=== PATIENT | female | born 1995 | race Caucasian/White ===

== ENCOUNTER 2016-10-29 09:21 | Emergency (ER) | payer BC ==
[~2016-10-29] VITALS: Ht 167.6 cm; Wt 83.0 kg
[2016-10-29 09:36] VITALS: BP 129/87
[2016-10-29] MEDS ORDERED: MORPHINE SULFATE 2 MG/ML DISP.SYRIN. IV/SQ PRN (09:45)
--- NOTE | 2016-10-29 09:45 | PHYS DOC ---
Past Medical History Past Medical History: No Pertinent History Past Surgical History: No Surgical History Alcohol Use: None Drug Use: None Adult General Chief Complaint Chief Complaint: ABDOMINAL PAIN HPI HPI Patient is a 21 year old female who presents with right upper quadrant pain. She states it started Friday in the afternoon lasted for several hours and then resolved by itself. She states over the weekend lasted for a couple hours and resolved and then yesterday it was fairly consistent all day long. She states she's not had much of appetite is not been eating. She states describes pain as sharp stabbing pain in the right upper quadrant without any radiation. She denies any vaginal bleeding discharge or dysuria. She denies any past surgical history on her abdomen. She states her pain is 3 out of 10. Review of Systems Review of Systems Constitutional: Denies fever or chills [] Eyes: Denies change in visual acuity, redness, or eye pain [] HENT: Denies nasal congestion or sore throat [] Respiratory: Denies cough or shortness of breath [] Cardiovascular: No additional information not addressed in HPI [] GI: Denies vomiting, bloody stools or diarrhea, positive for abdominal pain, nausea,[] : Denies dysuria or hematuria [] Musculoskeletal: Denies back pain or joint pain [] Integument: Denies rash or skin lesions [] Neurologic: Denies headache, focal weakness or sensory changes [] Endocrine: Denies polyuria or polydipsia [] Current Medications Current Medications Current Medications Medications (Trade) Dose Ordered Sig/Wes Start Time Stop Time Status Last Admin Dose Admin Info (Do NOT chart on this entry -- for MONITORING) 1 each PRN DAILY PRN 10/29/16 10:30 10/31/16 10:29 Iohexol (Omnipaque 240 Mg/ml) 50 ml 1X ONCE 10/29/16 10:45 10/29/16 10:46 DC 10/29/16 11:36 50 ML Iohexol (Omnipaque 300 Mg/ml) 75 ml 1X ONCE 10/29/16 10:45 10/29/16 10:46 DC 10/29/16 11:36 75 ML Morphine Sulfate 2 mg PRN Q15MIN PRN 10/29/16 09:45 10/30/16 09:44 Ondansetron HCl (Zofran) 4 mg 1X ONCE 10/29/16 10:00 10/29/16 10:01 DC 10/29/16 10:11 4 MG Sodium Chloride 1,000 ml @ 1,000 mls/hr Q1H 10/29/16 10:00 10/29/16 10:59 DC 10/29/16 10:11 1,000 MLS/HR Allergies Allergies Allergies Coded Allergies Type Severity Reaction Last Updated Verified No Known Drug Allergies 10/29/16 No Physical Exam Physical Exam Constitutional: Well developed, well nourished, no acute distress, non-toxic appearance. [] HENT: Normocephalic, atraumatic, bilateral external ears normal, oropharynx moist, no oral exudates, nose normal. [] Eyes: PERRLA, EOMI, conjunctiva normal, no discharge. [] Neck: Normal range of motion, no tenderness, supple, no stridor. [] Cardiovascular:Heart rate regular rhythm, no murmur [] Lungs & Thorax: Bilateral breath sounds clear to auscultation [] Abdomen: Bowel sounds normal, soft, tender palpation right upper quadrant, no rebound or guarding, no masses, no pulsatile masses. [] Skin: Warm, dry, no erythema, no rash. [] Back: No tenderness, no CVA tenderness. [] Extremities: No tenderness, no cyanosis, no clubbing, ROM intact, no edema. [] Neurologic: Alert and oriented X 3, normal motor function, normal sensory function, no focal deficits noted. [] Psychologic: Affect normal, judgement normal, mood normal. [] Current Patient Data Vital Signs Vital Signs Date Time Temp Pulse Resp B/P (MAP) Pulse Ox O2 Delivery O2 Flow Rate FiO2 10/29/16 09:36 98.1 68 20 129/87 (101) 97 Room Air 98.1 Lab Values Laboratory Tests Test 10/29/16 08:37 10/29/16 09:30 10/29/16 10:05 POC Urine HCG, Qualitative Hcg negative (Negative) Urine Collection Type Unknown Urine Color Yellow Urine Clarity Clear Urine pH 6.5 Urine Specific [place] 1.025 Urine Protein Negative mg/dL (NEG-TRACE) Urine Glucose (UA) Negative mg/dL (NEG) Urine Ketones (Stick) Trace mg/dL (NEG) Urine Blood Negative (NEG) Urine Nitrite Negative (NEG) Urine Bilirubin Negative (NEG) Urine Urobilinogen Dipstick 0.2 mg/dL (0.2 mg/dL) Urine Leukocyte Esterase Small (NEG) Urine RBC 3-5 /HPF (0-2) Urine WBC >40 /HPF (0-4) Urine Squamous Epithelial Cells Few /LPF Urine Bacteria 0 /HPF (0-FEW) Urine Hyaline Casts Moderate /HPF Urine Opiates Screen Neg (NEG) Urine Methadone Screen Neg (NEG) Urine Barbiturates Neg (NEG) Urine Phencyclidine Screen Neg (NEG) Urine Amphetamine/Methamphetamine Neg (NEG) Urine Benzodiazepines Screen Neg (NEG) Urine Cocaine Screen Neg (NEG) Urine Cannabinoids Screen Neg (NEG) Urine Ethyl Alcohol Neg (NEG) White Blood Count 7.9 x10^3/uL (4.0-11.0) Red Blood Count 4.84 x10^6/uL (3.50-5.40) Hemoglobin 15.1 g/dL (12.0-15.5) Hematocrit 42.7 % (36.0-47.0) Mean Corpuscular Volume 88 fL (79-100) Mean Corpuscular Hemoglobin 31 pg (25-35) Mean Corpuscular Hemoglobin Concent 35 g/dL (31-37) Red Cell Distribution Width 12.7 % (11.5-14.5) Platelet Count 286 x10^3/uL (140-400) Neutrophils (%) (Auto) 55 % (31-73) Lymphocytes (%) (Auto) 32 % (24-48) Monocytes (%) (Auto) 7 % (0-9) Eosinophils (%) (Auto) 5 % (0-3) H Basophils (%) (Auto) 1 % (0-3) Neutrophils # (Auto) 4.3 x10^3uL (1.8-7.7) Lymphocytes # (Auto) 2.5 x10^3/uL (1.0-4.8) Monocytes # (Auto) 0.6 x10^3/uL (0.0-1.1) Eosinophils # (Auto) 0.4 x10^3/uL (0.0-0.7) Basophils # (Auto) 0.1 x10^3/uL (0.0-0.2) Prothrombin Time 13.0 SEC (11.7-14.0) Prothrombin Time INR 1.0 (0.8-1.1) PTT 28 SEC (24-38) Sodium Level 140 mmol/L (136-145) Potassium Level 4.0 mmol/L (3.5-5.1) Chloride Level 102 mmol/L (98-107) Carbon Dioxide Level 27 mmol/L (21-32) Anion Gap 11 (6-14) Blood Urea Nitrogen 13 mg/dL (7-20) Creatinine 0.8 mg/dL (0.6-1.0) Estimated GFR (Cockcroft-Gault) 91.4 Glucose Level 89 mg/dL (70-99) Calcium Level 9.5 mg/dL (8.5-10.1) Total Bilirubin 0.8 mg/dL (0.2-1.0) Direct Bilirubin 0.1 mg/dL (0.0-0.2) Aspartate Amino Transferase (AST) 54 U/L (15-37) H Alanine Aminotransferase (ALT) 97 U/L (14-59) H Alkaline Phosphatase 74 U/L (46-116) Creatine Kinase 69 U/L (26-192) Creatine Kinase MB (Mass) 0.9 ng/mL (0.0-3.6) Creatine Kinase MB Relative Index % (0-4) Total Protein 8.0 g/dL (6.4-8.2) Albumin 4.0 g/dL (3.4-5.0) Lipase 147 U/L (73-393) Laboratory Tests 10/29/16 10:05 Laboratory Tests 10/29/16 10:05 EKG EKG [] Radiology/Procedures Radiology[facility]Procedures [facility] [address] [place], [place] [id number] IMAGING REPORT Signed PATIENT: DIMITRI ROJAS ACCOUNT: [id number] : 1995 LOCATION: ER AGE: 21 SEX: F EXAM STATUS: REG ER ORD. PHYSICIAN: SCOT FLORES MD REASON: abd pain PROCEDURE: CT ABD PELV W/ORAL&IV CONTRAST CT study of the abdomen and pelvis with contrast Clinical indications: Right upper quadrant pain for 4 days. Technique: After IV infusion of 75 cc of Omnipaque 300, helical CT scanning of the abdomen and pelvis was performed. GI contrast was administered per mouth. PQRS Compliance Statement: One or more of the following individualized dose reduction techniques were utilized for this examination: 1. Automated exposure control 2. Adjustment of the mA and/or kV according to patient size 3. Use of iterative reconstruction technique Comparison: None available. Findings: The liver and spleen and pancreas and gallbladder are normal. No adrenal mass is evident. Both kidneys are normal without hydronephrosis or hydroureter. The urinary bladder wall is smooth. No focal aneurysmal dilatation of the abdominal aorta is seen. No enlarged abdominal or pelvic lymphadenopathy is seen. No uterine mass is evident. No dominant ovarian cyst or mass is seen. No obstructive bowel pattern is seen. The terminal ileum is unremarkable. No free air or free fluid or inflammatory change is seen. No lung base consolidation is evident. No osteolytic process is seen. IMPRESSION: No acute abnormality of the abdomen or pelvis. DICTATED and SIGNED BY: BESS MORIN MD DATE: 10/29/16 1148 CC: SCOT FLORES MD; CORIE WARREN MD ~ [address] [address] IMAGING REPORT Signed PATIENT: DIMITRI ROJAS ACCOUNT: [id number] : 1995 LOCATION: ER AGE: 21 SEX: F EXAM STATUS: REG ER ORD. PHYSICIAN: SCOT FLORES MD REASON: RUQ pain PROCEDURE: ABDOMEN LTD Limited abdomen ultrasound study of the right upper quadrant History: Right upper quadrant abdominal pain. Findings: The pancreas is homogeneous without focal enlargement. The liver measures 13.7 cm in length which is normal. No focal hepatic mass is seen. The gallbladder is normal and no gallstones are seen. The extra hepatic bile duct measures 4.8 mm in caliber which is normal. The length of the right kidney is 11.0 cm and no hydronephrosis or renal mass or perinephric collection is seen on this side. IMPRESSION: Unremarkable right quadrant abdomen ultrasound study DICTATED and SIGNED BY: BESS MORIN MD DATE: 10/29/16 1040 CC: SCOT FLORES MD; CORIE WARREN MD ~ Impressions: Abdominal pain Course & Med Decision Making Course & Med Decision Making Pertinent Labs and Imaging studies reviewed. (See chart for details) CT scan including the right upper quadrant ultrasound are both nonacute. Labs did show elevated white blood cells in her urine without any bacteriuria. I do not suspect any acute abdominal process is causing her symptoms at this time. She's being discharged home. She is instructed to follow-up with primary care physician within next 3-5 days for repeat labs. She is instructed return ER for worsening pain, fevers, or other concerns. I recommend MiraLAX or Metamucil for her issues of constipation/diarrhea. Patient's agreeable to the plan and in stable condition this time. Dragon Disclaimer Dragon Disclaimer This electronic medical record was generated, in whole or in part, using a voice recognition dictation system. Departure Departure Disposition: 01 HOME, SELF-CARE Condition: STABLE Referrals: CORIE WARREN MD (PCP) Patient Instructions: Abdominal Pain (Nonspecific) Additional Instructions: Your lab work show the have white blood cells in your urine but no signs of an infection in your urine. There is a lot of different reasons to have white blood cells in your urine and you will need to follow-up with your primary care physician within the next 3-5 days to have your urine and labs rechecked. The rest of your lab work including the CAT scan of her abdomen pelvis and an ultrasound of her right upper quadrant did not show any acute abnormalities. Your being discharged home. Please return ER if you have worsening pain, he'll fevers or any other concerns. Your being discharged with Zofran oral dissolvable tablets that you can use as needed for nausea. For your constipation, you can use Metamucil or MiraLAX. You can purchase both of these [id number] and follow the instructions on the label. Scripts Ondansetron (ZOFRAN ODT) 4 Mg Tab.rapdis 1 TAB SL Q8HRS Y for NAUSEA, #10 TAB Prov: SCOT FLORES MD 10/29/16 SCOT FLORES MD Oct 29, 2016 09:44
[2016-10-29 09:55] LABS: BILIRUBIN,URINE NEGATIVE (NEG); GLUCOSE,URINE NEGATIVE (NEG); NITRITE,URINE NEGATIVE (NEG); PH,URINE 6.5; PROTEIN,URINE NEGATIVE (NEG-TRACE); UROBILINOGEN,URINE 0.2 mg/dL (0.2 mg/dL)
[2016-10-29 10:00] LABS: BARBITURATES NEG (NEG); BENZODIAZEPINES NEG (NEG); CANNABINOIDS NEG (NEG); COCAINE NEG (NEG); METHADONE NEG (NEG); OPIATES NEG (NEG); PHENCYCLIDINE NEG (NEG)
[2016-10-29] MEDS ORDERED: IV NORMAL SALINE 1000ML BAG 1,000 ML IV SCH (10:00)
[2016-10-29] MEDS ORDERED: ONDANSETRON PF 4 MG/2 ML VIAL. IV ONE (10:00)
[2016-10-29 10:18] LABS: WBC,URINE >40 /HPF (0-4)
[2016-10-29 10:19] LABS: BACTERIA,URINE 0 /HPF (0-FEW); SQUAMOUS EPITHELIAL CELL,UR FEW /LPF
[2016-10-29 10:26] LABS: CALCIUM 9.5 mg/dL (8.5-10.1); CREATININE 0.8 mg/dL (0.6-1.0); GFR 91.4
[2016-10-29] MEDS ORDERED: CONTRAST GIVEN MC PRN (10:30)
[2016-10-29 10:31] LABS: DIRECT BILIRUBIN 0.1 mg/dL (0.0-0.2); TOTAL BILIRUBIN 0.8 mg/dL (0.2-1.0)
[2016-10-29 10:40] LABS: BASO # 0.1 x10^3/uL (0.0-0.2); BASO % 1 % (0-3); CKMB MASS 0.9 ng/mL (0.0-3.6); CREATINE KINASE 69 U/L (26-192); EOS % 5 % (0-3); HEMATOCRIT 42.7 % (36.0-47.0); HEMOGLOBIN 15.1 g/dL (12.0-15.5); LYMPH # 2.5 x10^3/uL (1.0-4.8); LYMPH % 32 % (24-48); MEAN CORPUSCULAR HEMOGLOBIN 31 pg (25-35); MEAN CORPUSCULAR HGB CONC 35 g/dL (31-37); MEAN CORPUSCULAR VOLUME 88 fL (79-100); MONO % 7 % (0-9); NEUT % 55 % (31-73); PLATELET COUNT 286 x10^3/uL (140-400); RED BLOOD COUNT 4.84 x10^6/uL (3.50-5.40); RED CELL DISTRIBUTION WIDTH 12.7 % (11.5-14.5); WHITE BLOOD COUNT 7.9 x10^3/uL (4.0-11.0)
[2016-10-29] MEDS ORDERED: IOHEXOL 240 MG/ML 50ML VIAL. PO ONE (10:45)
[2016-10-29] MEDS ORDERED: IOHEXOL 300 MG/ML 75 ML VIAL IV ONE (10:45)
--- NOTE | 2016-10-29 10:45 | RAD ---
Limited abdomen ultrasound study of the right upper quadrant History: Right upper quadrant abdominal pain. Findings: The pancreas is homogeneous without focal enlargement. The liver measures 13.7 cm in length which is normal. No focal hepatic mass is seen. The gallbladder is normal and no gallstones are seen. The extra hepatic bile duct measures 4.8 mm in caliber which is normal. The length of the right kidney is 11.0 cm and no hydronephrosis or renal mass or perinephric collection is seen on this side. IMPRESSION: Unremarkable right quadrant abdomen ultrasound study
--- NOTE | 2016-10-29 11:56 | RAD ---
CT study of the abdomen and pelvis with contrast Clinical indications: Right upper quadrant pain for 4 days. Technique: After IV infusion of 75 cc of Omnipaque 300, helical CT scanning of the abdomen and pelvis was performed. GI contrast was administered per mouth. PQRS Compliance Statement: One or more of the following individualized dose reduction techniques were utilized for this examination: 1. Automated exposure control 2. Adjustment of the mA and/or kV according to patient size 3. Use of iterative reconstruction technique Comparison: None available. Findings: The liver and spleen and pancreas and gallbladder are normal. No adrenal mass is evident. Both kidneys are normal without hydronephrosis or hydroureter. The urinary bladder wall is smooth. No focal aneurysmal dilatation of the abdominal aorta is seen. No enlarged abdominal or pelvic lymphadenopathy is seen. No uterine mass is evident. No dominant ovarian cyst or mass is seen. No obstructive bowel pattern is seen. The terminal ileum is unremarkable. No free air or free fluid or inflammatory change is seen. No lung base consolidation is evident. No osteolytic process is seen. IMPRESSION: No acute abnormality of the abdomen or pelvis.
[2016-10-29] MEDS ORDERED: ONDA4TAB10 SL (12:53)
== END 2016-10-29 13:08 | disposition home or self-care (01) ==
LOC: ER 09:21
DX: R10.11 Right upper quadrant pain (principal); R11.0 Nausea
CPT/HCPCS: 36415; 74177; 76705; 80048; 80076; 80305; 80320; 81001; 81025; 82553; 83690; 85027; 85610; 85730; 87086; 96361; 96374; 99285; J2405; J7030; Q9966; Q9967; G0481